=== PATIENT | male | born 1940 ===

== ENCOUNTER → 2017-04-09 | Outpatient (CLI) | payer OTHER ==
[~2017-04-09] MED LIST: BREO ELLIPTA 201 INH; CITALOPRAM HYDR20 MG PO; OMEGA 31000 MG PO; PROAIR HFA IN; QVAR80 MCG IN; SIMVASTATIN40 MG PO; TAMSULOSIN HCL0.4 MG PO; VITAMIN B-125000 MCG PO; VITAMIN D-31000 UNIT PO
--- NOTE | 2017-04-09 16:24 | DIAGNOSTIC IMAGING REPORT ---
PROCEDURE: US ART LOWER EXT WITH MAYA-B/L INDICATION: CLAUDICATION TECHNIQUE: Color Doppler duplex imaging of the lower extremity arterial system was performed bilaterally. Pre and post exercise ABIs were acquired. COMPARISON: None. FINDINGS: No other significant stenosis in the lower extremity arterial system. RIGHT LOWER EXTREMITY: ABIs: Pre exercise posterior tibial: 152 Pre exercise dorsalis pedis: 158 Postexercise posterior tibial: 180 Postexercise dorsalis pedis: 180 VESSELS/ WAVEFORMS: Triphasic RIGHT LOWER EXTREMITY PEAK SYSTOLIC VELOCITIES: Common femoral artery: 86 cm/second. Profunda femoral artery: 61 cm/second. Proximal superficial femoral artery: 110 cm/second. Mid superficial femoral artery: 93 cm/second. Distal superficial femoral artery: 63 cm/second. Popliteal artery: 55 cm/second. Proximal posterior tibial artery: 95 cm/second. Proximal anterior tibial artery: 79 cm/second. Distal posterior tibial artery: 100 cm/second. Dorsalis pedis artery: 109 cm/second. LEFT LOWER EXTREMITY: ABIs: Pre exercise posterior tibial: 160 Pre exercise dorsalis pedis: 160 Postexercise posterior tibial: 195 Postexercise dorsalis pedis: 178 VESSELS/ WAVEFORMS: Triphasic LEFT LOWER EXTREMITY PEAK SYSTOLIC VELOCITIES: Common femoral artery: 91 cm/second. Profunda femoral artery: 54 cm/second. Proximal superficial femoral artery: 98 cm/second. Mid superficial femoral artery: 98 cm/second. Distal superficial femoral artery: 63 cm/second. Popliteal artery: 111 cm/second. Proximal posterior tibial artery: 69 cm/second. Proximal anterior tibial artery: 82 cm/second. Distal posterior tibial artery: 98 cm/second. Dorsalis pedis artery: 85 cm/second. IMPRESSION: 1. Normal lower extremity arterial system
== END ==
LOC: US SRH 13:32
DX: I70.219 Atherosclerosis of native arteries of extremities with intermittent claudication, unspecified extremity (principal)

== ENCOUNTER → 2017-05-12 | Outpatient (CLI) | payer OTHER ==
--- NOTE | 2017-05-12 12:19 | DIAGNOSTIC IMAGING REPORT ---
PROCEDURE: MR UPPER EXTREMITY W/O CONT-LT INDICATION: LEFT SHOULDER PAIN; LIMITED ROM TECHNIQUE: PD and FAT-SAT PD, axial, and coronal-oblique images. PD and STIR sagittal-oblique images. COMPARISON: None. FINDINGS: Moderate AC joint degenerative changes and type 2 acromion resulting in impingement. There is a partial thickness tear of the distal supraspinatus tendon anteriorly on the articular side (8 mm AP). Small subdeltoid fluid collection. In the absence of intra-articular contrast, glenoid labrum appears grossly normal. Normal bicipital tendon. Normal glenohumeral ligaments. No suspicious osseous lesion. No muscular atrophy. IMPRESSION: 1. 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 Partial thickness tear of the distal supraspinatus tendon anteriorly, articular side 3. Small subdeltoid effusion suggestive of bursitis
== END ==
LOC: MRI SRH 09:58
DX: M19.012 Primary osteoarthritis, left shoulder (principal); S46.812A Strain of other muscles, fascia and tendons at shoulder and upper arm level, left arm, initial encounter; M25.412 Effusion, left shoulder